=== PATIENT | male | born 1930 | race Caucasian/White ===

== ENCOUNTER 2017-04-13 15:36 | Emergency (ER) | payer MEDICARE, BC ==
[~2017-04-13] VITALS: Ht 180.3 cm; Wt 73.0 kg
[2017-04-13 17:29] VITALS: BP 166/100
== END 2017-04-13 17:36 | disposition home or self-care (01) ==
LOC: ER 15:37
DX: S51.011A Laceration without foreign body of right elbow, initial encounter (principal); S70.01XA Contusion of right hip, initial encounter; S50.02XA Contusion of left elbow, initial encounter; I10 Essential (primary) hypertension; W01.0XXA Fall on same level from slipping, tripping and stumbling without subsequent striking against object, initial encounter; Y93.89 Activity, other specified; Y92.89 Other specified places as the place of occurrence of the external cause; Y99.8 Other external cause status; Z98.890 Other specified postprocedural states
CPT/HCPCS: 73080; 73502; 99284; A6449